=== PATIENT | male | born 1935 | race Caucasian/White ===

== ENCOUNTER 2021-05-04 23:15 | Inpatient (IN) | payer MEDICARE ==
[2021-05-05] LABS: #Eosinphils 0.1 thou/uL (0.0-0.7); #Lymphocytes 0.6 thou/uL (1.20-3.40); #Monocytes 0.8 thou/uL (0.11-0.59); #Neutrophils 13.3 thou/uL (1.40-6.50); %Basophils 0.1 % (0.0-1.0); %Eosinophils 0.8 % (0.0-10.0); %Lymphocytes 3.7 % (21.0-51.0); %Monocytes 5.1 % (0.0-10.0); %Neutrophils 90.2 % (42.0-75.0); Hemoglobin 9.8 g/dL (14.0-18.0); Mean Corpuscular HGB CONC 32.5 g/dL (32.0-36.0); Mean Corpuscular Hemoglobin 29.6 pg (27.0-31.0); Mean Corpuscular Volume 91.1 fL (78.0-98.0); Mean Platelet Volume 7.2 fL (7.4-10.4); Platelet Count 194 thou/uL (130-400); RBC Distribution Width 14.5 % (11.5-14.5); White Blood Cell (WBC) Count 14.7 thou/uL (4.8-10.8)
[2021-05-05 00:19] LABS: ALT (SGPT) 13 U/L (8-55); AST (SGOT) 22 U/L (5-34); Albumin 3.7 g/dL (3.4-4.8); Alkaline Phosphatase 101 U/L (40-110); Anion Gap 14 mmol/L (10-20); BUN (Urea Nitrogen) 52 mg/dL (8.4-25.7); Bilirubin, Total 0.5 mg/dL (0.2-1.2); Calc. Creatinine Clearance 0 mL/min (70-130); Calcium 8.1 mg/dL (7.8-10.44); Carbon Dioxide 24 mmol/L (23-31); Chloride 102 mmol/L (98-107); Globulin 2.4 g/dL (2.4-3.5); Glucose 111 mg/dL (83-110); Potassium 3.8 mmol/L (3.5-5.1); Protein, Total 6.1 g/dL (5.8-8.1); Sodium 136 mmol/L (136-145)
[2021-05-05] MEDS ORDERED: Cefepime 2 GM VIAL ONE (02:13)
[2021-05-05] MEDS ORDERED: Vancomycin 1 GM/200 ML BAG ONE (02:13)
[2021-05-05] MEDS ORDERED: Sodium Chloride 0.9% 1,000 ML IV SCH (05:15)
[2021-05-05 06:24] LABS: SARS-CoV-2 NAA Rapid Test Not Detected (NotDetected)
[2021-05-05] MEDS ORDERED: Senokot S 8.6-50 MG TAB PO PRN (08:26)
[2021-05-05] MEDS ORDERED: Calcium Carbonate 500 MG ChewTAB PO PRN (08:26)
[2021-05-05] MEDS ORDERED: Acetaminophen 325 MG TAB PO PRN (08:26)
[2021-05-05] MEDS ORDERED: Vancomycin 1 GM in Premix Bag 1 BAG IVPB SCH ×2 (08:30→11:45)
[2021-05-05] MEDS ORDERED: Cefepime 1 GM in Sodium Chloride 0.9% 100 ML IVPB SCH (08:30)
[2021-05-05] MEDS ORDERED: Heparin 10,000 UNITS/ 10 ML VIAL ONE (09:13)
[2021-05-05 10:05] LABS: Anion Gap 15 mmol/L (10-20); BUN (Urea Nitrogen) 51 mg/dL (8.4-25.7); Calc. Creatinine Clearance 0 mL/min (70-130); Calcium 8.2 mg/dL (7.8-10.44); Carbon Dioxide 24 mmol/L (23-31); Chloride 101 mmol/L (98-107); Glucose 102 mg/dL (83-110); Potassium 3.9 mmol/L (3.5-5.1); Sodium 136 mmol/L (136-145)
[2021-05-05 10:06] LABS: #Eosinphils 0.1 thou/uL (0.0-0.7); #Lymphocytes 1.1 thou/uL (1.20-3.40); #Monocytes 0.9 thou/uL (0.11-0.59); #Neutrophils 16.4 thou/uL (1.40-6.50); %Basophils 0.2 % (0.0-1.0); %Eosinophils 0.5 % (0.0-10.0); %Lymphocytes 6.1 % (21.0-51.0); %Neutrophils 88.2 % (42.0-75.0); Hemoglobin 9.9 g/dL (14.0-18.0); Mean Corpuscular HGB CONC 31.8 g/dL (32.0-36.0); Mean Corpuscular Hemoglobin 29.3 pg (27.0-31.0); Mean Corpuscular Volume 92.1 fL (78.0-98.0); Mean Platelet Volume 7.5 fL (7.4-10.4); Platelet Count 218 thou/uL (130-400); RBC Distribution Width 14.7 % (11.5-14.5); Red Blood Cell (RBC) Count 3.39 mill/uL (4.70-6.10); White Blood Cell (WBC) Count 18.6 thou/uL (4.8-10.8)
[2021-05-05 11:30] VITALS: BMI 25.6
[2021-05-05] MEDS ORDERED: HOLD VANCOMYCIN FOR LEVEL >20 FS SCH (11:45)
[2021-05-05] MEDS ORDERED: Vancomycin HCl 750 MG in Sodium Chloride 0.9% 250 ML 250 ML IVPB SCH (11:45)
[2021-05-05] MEDS ORDERED: Vancomycin HCl 500 MG in Sodium Chloride 0.9% 100 ML IVPB SCH (11:45)
[2021-05-05] MEDS ORDERED: Vancomycin HCl 250 MG in Sodium Chloride 0.9% 100 ML IVPB SCH (11:45)
[2021-05-05] MEDS: Saccharomyces boulardii 250 MG CAP PO SCH (11:57)
[2021-05-05 12:23] LABS: Vancomycin, Random 14.6 ug/mL (See Comment)
[2021-05-05] MEDS ORDERED: Labetalol HCl 100 MG/20 ML VIAL SLOW IVP PRN (14:37)
[2021-05-06] MEDS: Cefepime 0.5 GM in Sodium Chloride 0.9% 100 ML IVPB SCH (02:29)
[2021-05-06 07:02] LABS: #Eosinphils 0.1 thou/uL (0.0-0.7); #Lymphocytes 1.3 thou/uL (1.20-3.40); #Monocytes 0.9 thou/uL (0.11-0.59); #Neutrophils 6.8 thou/uL (1.40-6.50); %Basophils 0.1 % (0.0-1.0); %Eosinophils 0.9 % (0.0-10.0); %Lymphocytes 14.6 % (21.0-51.0); %Monocytes 10.3 % (0.0-10.0); %Neutrophils 74.2 % (42.0-75.0); Mean Corpuscular HGB CONC 32.4 g/dL (32.0-36.0); Mean Corpuscular Hemoglobin 29.7 pg (27.0-31.0); Mean Corpuscular Volume 91.8 fL (78.0-98.0); Mean Platelet Volume 8.1 fL (7.4-10.4); Platelet Count 186 thou/uL (130-400); RBC Distribution Width 14.7 % (11.5-14.5); Red Blood Cell (RBC) Count 3.02 mill/uL (4.70-6.10); White Blood Cell (WBC) Count 9.1 thou/uL (4.8-10.8)
[2021-05-06 07:15] LABS: Anion Gap 10 mmol/L (10-20); BUN (Urea Nitrogen) 26 mg/dL (8.4-25.7); Calc. Creatinine Clearance 14 mL/min (70-130); Calcium 8.4 mg/dL (7.8-10.44); Carbon Dioxide 30 mmol/L (23-31); Chloride 103 mmol/L (98-107); Glucose 95 mg/dL (83-110); Potassium 3.6 mmol/L (3.5-5.1); Sodium 139 mmol/L (136-145)
[2021-05-06] MEDS: Saccharomyces boulardii 250 MG CAP PO SCH (18:40)
[2021-05-06] MEDS ORDERED: SODIUM CHLORIDE 0.9% FS PRN (19:33)
[2021-05-06] MEDS ORDERED: HEPARIN FS PRN ×2 (19:33→19:36)
[2021-05-06] MEDS ORDERED: GENTAMICIN FS PRN ×2 (19:33→19:36)
[2021-05-06] MEDS ORDERED: [UNRECOGNIZED DRUG - OTHER] FS PRN (19:36)
[2021-05-06] MEDS ORDERED: traMADol HCl 50 MG TAB PO SCH (21:00)
[2021-05-06] MEDS ORDERED: Atorvastatin Calcium 40 MG TAB PO SCH (21:00)
[2021-05-06] MEDS: Lisinopril 20 MG TAB PO SCH (22:06)
[2021-05-06] MEDS: traMADol HCl 50 MG TAB PO SCH (22:08)
[2021-05-06] MEDS: Atorvastatin Calcium 40 MG TAB PO SCH (22:09)
[2021-05-07] MEDS: Cefepime 0.5 GM in Sodium Chloride 0.9% 100 ML IVPB SCH (02:09)
[2021-05-07] MEDS ORDERED: Non-Formulary Item 1 EACH (Folic Acid [Folic Acid] 0.8 MG Tablet) PO SCH (09:00)
[2021-05-07] MEDS ORDERED: Non-Formulary Item 1 EACH (Loratadine [Claritin] 5 MG Tab.Rapdis) PO SCH (09:00)
[2021-05-07] MEDS ORDERED: Cholecalciferol 1,000 UNITS (25 MCG) TAB PO SCH (09:00)
[2021-05-07] MEDS ORDERED: Heparin 10,000 UNITS/ 10 ML VIAL ONE (09:17)
[2021-05-07] MEDS: Amlodipine 10 MG TAB PO SCH (10:20)
[2021-05-07] MEDS: Cholecalciferol 1,000 UNITS (25 MCG) TAB PO SCH (10:22)
[2021-05-07] MEDS: Folic Acid 1 MG TAB PO SCH (10:26)
[2021-05-07] MEDS: Loratadine 10 MG TAB PO SCH (10:27)
[2021-05-07] MEDS: Lisinopril 20 MG TAB PO SCH ×2 (10:27→19:56)
[2021-05-07] MEDS: traMADol HCl 50 MG TAB PO SCH ×2 (10:39→19:56)
[2021-05-07] MEDS: Saccharomyces boulardii 250 MG CAP PO SCH (10:39)
[2021-05-07] MEDS ORDERED: SODIUM CHLORIDE 0.9% FS PRN (14:35)
[2021-05-07] MEDS ORDERED: GENTAMICIN FS PRN (14:35)
[2021-05-07] MEDS: Carvedilol 25 MG TAB PO SCH ×2 (15:15→19:55)
[2021-05-07] MEDS: Atorvastatin Calcium 40 MG TAB PO SCH (19:55)
[2021-05-08] MEDS: Cefepime 0.5 GM in Sodium Chloride 0.9% 100 ML IVPB SCH (04:33)
[2021-05-08] MEDS: Amlodipine 10 MG TAB PO SCH (09:18)
[2021-05-08] MEDS: Folic Acid 1 MG TAB PO SCH (09:19)
[2021-05-08] MEDS: Cholecalciferol 1,000 UNITS (25 MCG) TAB PO SCH (09:19)
[2021-05-08] MEDS: Lisinopril 20 MG TAB PO SCH ×2 (09:19→19:23)
[2021-05-08] MEDS: traMADol HCl 50 MG TAB PO SCH ×2 (09:20→19:25)
[2021-05-08] MEDS: Saccharomyces boulardii 250 MG CAP PO SCH (09:20)
[2021-05-08] MEDS: Loratadine 10 MG TAB PO SCH (09:20)
[2021-05-08] MEDS: Atorvastatin Calcium 40 MG TAB PO SCH (19:22)
[2021-05-09] MEDS: Cefepime 0.5 GM in Sodium Chloride 0.9% 100 ML IVPB SCH (03:50)
[2021-05-09] MEDS ORDERED: Heparin 10,000 UNITS/ 10 ML VIAL ONE (09:27)
[2021-05-09] MEDS: Folic Acid 1 MG TAB PO SCH (10:31)
[2021-05-09] MEDS: Cholecalciferol 1,000 UNITS (25 MCG) TAB PO SCH (10:31)
[2021-05-09] MEDS: traMADol HCl 50 MG TAB PO SCH ×3 (10:31→20:10)
[2021-05-09] MEDS: Lisinopril 20 MG TAB PO SCH ×2 (10:31→20:04)
[2021-05-09] MEDS: Saccharomyces boulardii 250 MG CAP PO SCH (10:31)
[2021-05-09] MEDS: Loratadine 10 MG TAB PO SCH (10:31)
[2021-05-09] MEDS: Carvedilol 25 MG TAB PO SCH ×2 (10:31→20:05)
[2021-05-09] MEDS: Atorvastatin Calcium 40 MG TAB PO SCH (20:04)
[2021-05-09] MEDS ORDERED: Amlodipine 10 MG TAB PO SCH (21:00)
[2021-05-10] MEDS: Cefepime 0.5 GM in Sodium Chloride 0.9% 100 ML IVPB SCH (02:18)
[2021-05-10] MEDS ORDERED: Amlodipine 10 MG TAB PO SCH (09:00)
[2021-05-10] MEDS: Folic Acid 1 MG TAB PO SCH (09:28)
[2021-05-10] MEDS: Cholecalciferol 1,000 UNITS (25 MCG) TAB PO SCH (09:28)
[2021-05-10] MEDS: Loratadine 10 MG TAB PO SCH (09:28)
[2021-05-10] MEDS: Lisinopril 20 MG TAB PO SCH (09:28)
[2021-05-10] MEDS: Saccharomyces boulardii 250 MG CAP PO SCH (09:29)
[2021-05-10] MEDS: traMADol HCl 50 MG TAB PO SCH (09:45)
[2021-05-10 11:44] VITALS: BP 148/65; TEMP 97.9
== END 2021-05-10 11:50 | disposition home or self-care (01) | DRG 314 ==
LOC: ERS 23:15 → ERHOLD 05-05 01:06 → SURG B 05-05 03:27 → SURG A 05-05 05:41 → SURG B 05-05 09:19
PROVIDERS: ADMIT Internal Medicine; ATTEND Family Medicine
DX: T80.211A Bloodstream infection due to central venous catheter, initial encounter (principal); N18.6 End stage renal disease; R65.20 Severe sepsis without septic shock; A41.59 Other Gram-negative sepsis; I12.0 Hypertensive chronic kidney disease with stage 5 chronic kidney disease or end stage renal disease; M10.9 Gout, unspecified; Z96.653 Presence of artificial knee joint, bilateral; Z20.822 Contact with and (suspected) exposure to COVID-19; I25.10 Atherosclerotic heart disease of native coronary artery without angina pectoris; D63.1 Anemia in chronic kidney disease; D53.9 Nutritional anemia, unspecified; E83.42 Hypomagnesemia; Y83.8 Other surgical procedures as the cause of abnormal reaction of the patient, or of later complication, without mention of misadventure at the time of the procedure; Z79.82 Long term (current) use of aspirin; Z95.5 Presence of coronary angioplasty implant and graft; Z79.899 Other long term (current) drug therapy; Z99.2 Dependence on renal dialysis; Z85.46 Personal history of malignant neoplasm of prostate
CPT/HCPCS: 0240U; 36415; 71045; 80048; 80053; 80202; 83605; 83690; 85025; 86140; 87040; 87077; 87149; 87186; 90935; 96365; 96367; G0257; J0692; J1580; J1644; J3370; J3490

== ENCOUNTER 2021-10-12 13:08 | Outpatient (CLI) | payer MEDICARE ==
[2021-10-13 09:06] LABS: SARS-CoV-2 PCR by NAA Not Detected (NotDetected)
== END 2021-10-12 13:09 | disposition home or self-care (01) ==
LOC: LABBT 13:08
PROVIDERS: ATTEND Specialist
DX: Z01.818 Encounter for other preprocedural examination (principal); K42.9 Umbilical hernia without obstruction or gangrene; K40.90 Unilateral inguinal hernia, without obstruction or gangrene, not specified as recurrent; Z20.822 Contact with and (suspected) exposure to COVID-19
CPT/HCPCS: 71046; 93005; U0003; U0005; 93010

== ENCOUNTER 2021-10-15 07:48 | Day surgery (SDC) | payer MEDICARE ==
[2021-10-12 11:28] VITALS: BMI 20.7
[2021-10-15] MEDS ORDERED: Acetaminophen 500 MG TAB ONE (07:58)
[2021-10-15] MEDS ORDERED: Ketorolac Tromethamine 30 MG/ML VIAL ONE (07:58)
[2021-10-15 08:49] LABS: #Basophils 0.1 thou/uL (0.0-0.2); #Eosinphils 0.3 thou/uL (0.0-0.7); #Lymphocytes 1.4 thou/uL (1.20-3.40); #Monocytes 0.6 thou/uL (0.11-0.59); #Neutrophils 3.7 thou/uL (1.40-6.50); %Basophils 1.1 % (0.0-1.0); %Eosinophils 4.2 % (0.0-10.0); %Lymphocytes 23.5 % (21.0-51.0); %Monocytes 9.2 % (0.0-10.0); Hemoglobin 12.3 g/dL (14.0-18.0); Mean Corpuscular HGB CONC 32.4 g/dL (32.0-36.0); Mean Corpuscular Hemoglobin 31.6 pg (27.0-31.0); Mean Corpuscular Volume 97.7 fL (78.0-98.0); Mean Platelet Volume 6.1 fL (7.4-10.4); Platelet Count 281 thou/uL (130-400); Red Blood Cell (RBC) Count 3.89 mill/uL (4.70-6.10)
[2021-10-15 09:06] LABS: Anion Gap 17 mmol/L (10-20); BUN (Urea Nitrogen) 45 mg/dL (8.4-25.7); Calc. Creatinine Clearance 8 mL/min (70-130); Calcium 9.6 mg/dL (7.8-10.44); Carbon Dioxide 24 mmol/L (23-31); Chloride 103 mmol/L (98-107); Glucose 100 mg/dL (83-110); Potassium 4.5 mmol/L (3.5-5.1); Sodium 139 mmol/L (136-145)
[2021-10-15] MEDS ORDERED: Bupivacaine 0.25% HCL 30 ML VIAL ONE (09:22)
[2021-10-15] MEDS ORDERED: Xylocaine 1% w/ Epi 1:100K 10 ML VIAL ONE (09:22)
[2021-10-15] MEDS ORDERED: Dexmedetomidine 200 MCG/2 ML VIAL ONE (09:27)
[2021-10-15] MEDS ORDERED: Fentanyl 100 MCG/2 ML VIAL ONE (09:27)
[2021-10-15] MEDS ORDERED: ceFAZolin 2 GM/Dextrose 50 ML IVPB ONE (09:35)
[2021-10-15] MEDS ORDERED: SUGAMMADEX SODIUM 200 MG/2 ML VIAL ONE (09:43)
[2021-10-15] MEDS ORDERED: ePHEDrine 50 MG/ML VIAL ONE (09:51)
[2021-10-15] MEDS ORDERED: Ondansetron PF 4 MG/2 ML Vial ONE (09:51)
[2021-10-15] MEDS ORDERED: PROPOFOL 200 MG/20 ML VIAL ONE (09:51)
[2021-10-15] MEDS ORDERED: Lidocaine 1% PF 5 ML VIAL ONE (09:51)
[2021-10-15] MEDS ORDERED: Dexamethasone 20 MG/5 ML VIAL ONE (09:51)
[2021-10-15] MEDS ORDERED: Rocuronium Bromide 10 MG/ML (10ML VIAL) ONE (09:51)
== END 2021-10-15 13:35 | disposition home or self-care (01) ==
LOC: SDC 07:48
PROVIDERS: ATTEND Specialist
PROC: 0YU54JZ Supplement Right Inguinal Region with Synthetic Substitute, Percutaneous Endoscopic Approach (ICD-10-PCS; principal; 2021-10-15)
DX: K40.90 Unilateral inguinal hernia, without obstruction or gangrene, not specified as recurrent (principal); K42.0 Umbilical hernia with obstruction, without gangrene; K66.0 Peritoneal adhesions (postprocedural) (postinfection); I11.9 Hypertensive heart disease without heart failure; M19.90 Unspecified osteoarthritis, unspecified site; Z85.46 Personal history of malignant neoplasm of prostate; Z79.02 Long term (current) use of antithrombotics/antiplatelets; Z79.82 Long term (current) use of aspirin; Z79.891 Long term (current) use of opiate analgesic; Z79.899 Other long term (current) drug therapy; Z95.5 Presence of coronary angioplasty implant and graft; Z99.2 Dependence on renal dialysis
CPT/HCPCS: 80048; 85025; C1781; J0690; J1100; J1885; J2405; J2704; J3010; J3490; S0020

== ENCOUNTER 2022-06-16 17:55 | Inpatient (IN) | payer MEDICARE ==
[2022-06-16] MEDS ORDERED: Labetalol HCl 100 MG/20 ML VIAL ONE (18:19)
[2022-06-16 18:34] LABS: #Eosinphils 0.2 thou/uL (0.0-0.7); #Lymphocytes 1.4 thou/uL (1.20-3.40); #Monocytes 0.8 thou/uL (0.11-0.59); #Neutrophils 2.9 thou/uL (1.40-6.50); %Basophils 0.7 % (0.0-1.0); %Eosinophils 4.3 % (0.0-10.0); %Lymphocytes 25.5 % (21.0-51.0); %Monocytes 14.8 % (0.0-10.0); %Neutrophils 54.8 % (42.0-75.0); Hemoglobin 12.2 g/dL (14.0-18.0); Mean Corpuscular HGB CONC 32.5 g/dL (32.0-36.0); Mean Corpuscular Hemoglobin 30.4 pg (27.0-31.0); Mean Corpuscular Volume 93.3 fL (78.0-98.0); Mean Platelet Volume 6.7 fL (7.4-10.4); Platelet Count 270 thou/uL (130-400); RBC Distribution Width 14.5 % (11.5-14.5); Red Blood Cell (RBC) Count 4.01 mill/uL (4.70-6.10); White Blood Cell (WBC) Count 5.4 thou/uL (4.8-10.8)
[2022-06-16 18:55] LABS: ALT (SGPT) 18 U/L (8-55); AST (SGOT) 24 U/L (5-34); Albumin 4.2 g/dL (3.4-4.8); Alkaline Phosphatase 90 U/L (40-110); Anion Gap 15 mmol/L (10-20); BUN (Urea Nitrogen) 27 mg/dL (8.4-25.7); Bilirubin, Total 0.7 mg/dL (0.2-1.2); Calc. Creatinine Clearance 0 mL/min (70-130); Calcium 9.5 mg/dL (7.8-10.44); Carbon Dioxide 28 mmol/L (23-31); Chloride 102 mmol/L (98-107); Estimated GFR 14; Globulin 2.4 g/dL (2.4-3.5); Glucose 89 mg/dL (83-110); Potassium 4.2 mmol/L (3.5-5.1); Protein, Total 6.6 g/dL (5.8-8.1); Sodium 141 mmol/L (136-145)
[2022-06-16 19:17] LABS: CKMB 4.4 ng/mL (0-6.6)
[2022-06-16] MEDS ORDERED: niCARdipine 25 MG/10 ML VIAL ONE (20:06)
[2022-06-16 21:35] LABS: SARS-CoV-2 NAA Rapid Test Not Detected (NotDetected)
[2022-06-16 21:40] LABS: Troponin I 0.057 ng/mL (< 0.028)
[2022-06-16] MEDS ORDERED: Ondansetron PF 4 MG/2 ML Vial IVP PRN (21:53)
[2022-06-16] MEDS ORDERED: Acetaminophen 325 MG TAB PO PRN (21:53)
[2022-06-16] MEDS ORDERED: hydrALAZINE 25 MG TAB PO SCH (22:00)
[2022-06-16 22:49] VITALS: BMI 18.9
[2022-06-17 01:17] LABS: Troponin I 0.052 ng/mL (< 0.028)
[2022-06-17] MEDS: niCARdipine 25 MG in Sodium Chloride 0.9% 250 ML 250 ML IVPB SCH ×2 (02:43→06:40)
[2022-06-17 03:46] LABS: #Eosinphils 0.2 thou/uL (0.0-0.7); #Lymphocytes 1.9 thou/uL (1.20-3.40); #Monocytes 0.8 thou/uL (0.11-0.59); #Neutrophils 4.8 thou/uL (1.40-6.50); %Basophils 0.1 % (0.0-1.0); %Lymphocytes 24.8 % (21.0-51.0); %Monocytes 10.4 % (0.0-10.0); %Neutrophils 61.6 % (42.0-75.0); Hemoglobin 12.5 g/dL (14.0-18.0); Mean Corpuscular HGB CONC 32.9 g/dL (32.0-36.0); Mean Corpuscular Hemoglobin 30.8 pg (27.0-31.0); Mean Corpuscular Volume 93.6 fL (78.0-98.0); Mean Platelet Volume 7.4 fL (7.4-10.4); Platelet Count 240 thou/uL (130-400); RBC Distribution Width 14.5 % (11.5-14.5); Red Blood Cell (RBC) Count 4.07 mill/uL (4.70-6.10); White Blood Cell (WBC) Count 7.8 thou/uL (4.8-10.8)
[2022-06-17 04:08] LABS: Anion Gap 17 mmol/L (10-20); BUN (Urea Nitrogen) 31 mg/dL (8.4-25.7); Calc. Creatinine Clearance 10 mL/min (70-130); Calcium 9.3 mg/dL (7.8-10.44); Carbon Dioxide 20 mmol/L (23-31); Chloride 105 mmol/L (98-107); Estimated GFR 13; Glucose 108 mg/dL (83-110); Potassium 4.2 mmol/L (3.5-5.1); Sodium 138 mmol/L (136-145)
[2022-06-17] MEDS ORDERED: Carvedilol 25 MG TAB PO SCH (08:00)
[2022-06-17] MEDS ORDERED: Famotidine 20 MG TAB PO SCH ×2 (09:00)
[2022-06-17] MEDS: Losartan 25 MG TAB PO SCH (09:01)
[2022-06-17] MEDS: Amlodipine 10 MG TAB PO SCH (09:01)
[2022-06-17] MEDS: hydrALAZINE 25 MG TAB PO SCH ×3 (09:02→20:45)
[2022-06-17] MEDS: Heparin 5,000 UNITS/ML VIAL SC SCH ×2 (09:02→20:46)
[2022-06-17 09:24] LABS: HBSAg Index 0.27 S/CO (0-0.99); Hep B Core Total Ab Non-Reactive (NonReactive); Hep B Core Total Index 0.09 S/CO (0-0.79); Hep B Surf Ag Non-Reactive S/CO (NonReactive); Hep C IgG Ab Non-Reactive (NonReactive); Hep C Index 0.08 S/CO (0-0.79)
[2022-06-17 09:26] LABS: HBSAB Concentration 12.33 mIU/mL; Hep B Surf AB Reactive (NonReactive)
[2022-06-17] MEDS: Carvedilol 25 MG TAB PO SCH (16:27)
[2022-06-17] MEDS ORDERED: Atorvastatin Calcium 40 MG TAB PO SCH (21:00)
[2022-06-18] MEDS: Labetalol HCl 100 MG/20 ML VIAL SLOW IVP PRN ×2 (03:21→07:00)
[2022-06-18 05:19] LABS: Phosphorus 2.8 mg/dL (2.3-4.7)
[2022-06-18 05:23] LABS: #Eosinphils 0.1 thou/uL (0.0-0.7); #Lymphocytes 1.5 thou/uL (1.20-3.40); #Monocytes 0.6 thou/uL (0.11-0.59); #Neutrophils 3.6 thou/uL (1.40-6.50); %Basophils 0.3 % (0.0-1.0); %Eosinophils 2.1 % (0.0-10.0); %Lymphocytes 25.3 % (21.0-51.0); %Monocytes 10.3 % (0.0-10.0); Hemoglobin 12.3 g/dL (14.0-18.0); Mean Corpuscular HGB CONC 33.4 g/dL (32.0-36.0); Mean Corpuscular Hemoglobin 31.3 pg (27.0-31.0); Mean Corpuscular Volume 93.8 fL (78.0-98.0); Mean Platelet Volume 6.6 fL (7.4-10.4); Platelet Count 258 thou/uL (130-400); RBC Distribution Width 14.6 % (11.5-14.5); Red Blood Cell (RBC) Count 3.92 mill/uL (4.70-6.10); White Blood Cell (WBC) Count 5.8 thou/uL (4.8-10.8)
[2022-06-18 05:27] LABS: ALT (SGPT) 17 U/L (8-55); AST (SGOT) 23 U/L (5-34); Albumin 3.4 g/dL (3.4-4.8); Alkaline Phosphatase 70 U/L (40-110); Anion Gap 12 mmol/L (10-20); BUN (Urea Nitrogen) 29 mg/dL (8.4-25.7); Bilirubin, Total 0.6 mg/dL (0.2-1.2); Calc. Creatinine Clearance 12 mL/min (70-130); Calcium 9.1 mg/dL (7.8-10.44); Carbon Dioxide 27 mmol/L (23-31); Chloride 105 mmol/L (98-107); Estimated GFR 14; Globulin 1.9 g/dL (2.4-3.5); Glucose 100 mg/dL (83-110); Magnesium 1.8 mg/dL (1.6-2.6); Potassium 3.8 mmol/L (3.5-5.1); Protein, Total 5.3 g/dL (5.8-8.1); Sodium 140 mmol/L (136-145)
[2022-06-18] MEDS: Losartan 25 MG TAB PO SCH (08:18)
[2022-06-18] MEDS: Amlodipine 10 MG TAB PO SCH (08:18)
[2022-06-18] MEDS: Carvedilol 25 MG TAB PO SCH (08:18)
[2022-06-18] MEDS: hydrALAZINE 25 MG TAB PO SCH ×2 (08:18→15:03)
[2022-06-18] MEDS: Heparin 5,000 UNITS/ML VIAL SC SCH (08:19)
[2022-06-18 08:48] VITALS: TEMP 97.3
[2022-06-18 15:04] VITALS: BP 199/86
== END 2022-06-18 16:14 | disposition home or self-care (01) | DRG 304 ==
LOC: ERS 17:55 → CCU 20:57 → MSONC 06-17 15:36
PROVIDERS: ADMIT Internal Medicine; ATTEND Internal Medicine
DX: I16.0 Hypertensive urgency (principal); N18.6 End stage renal disease; I24.8 Other forms of acute ischemic heart disease; I16.1 Hypertensive emergency; I12.0 Hypertensive chronic kidney disease with stage 5 chronic kidney disease or end stage renal disease; Z20.822 Contact with and (suspected) exposure to COVID-19; I25.10 Atherosclerotic heart disease of native coronary artery without angina pectoris; Z99.2 Dependence on renal dialysis; Z96.653 Presence of artificial knee joint, bilateral; D63.1 Anemia in chronic kidney disease; M10.9 Gout, unspecified; Z85.46 Personal history of malignant neoplasm of prostate; Z90.79 Acquired absence of other genital organ(s); Z79.82 Long term (current) use of aspirin; Z79.899 Other long term (current) drug therapy; Z79.02 Long term (current) use of antithrombotics/antiplatelets; Z95.5 Presence of coronary angioplasty implant and graft; Z82.49 Family history of ischemic heart disease and other diseases of the circulatory system
CPT/HCPCS: 36415; 76770; 80048; 80053; 82553; 83735; 84100; 84244; 84484; 85025; 86704; 87340; 93005; 96365; 96366; 96375; 96376; J1644; J7050; U0002

== ENCOUNTER 2023-04-19 10:39 | Inpatient (IN) | payer MEDICARE ==
[~2023-04-19 10:39] MED LIST: Iopamidol-370 76% 500 ML MDV (1 ML CHARGE) ONE
[2023-04-19 11:03] LABS: #Eosinphils 0.2 thou/uL (0.0-0.7); #Monocytes 0.6 thou/uL (0.11-0.59); #Neutrophils 2.5 thou/uL (1.40-6.50); %Basophils 0.7 % (0.0-1.0); %Eosinophils 3.3 % (0.0-10.0); %Lymphocytes 28.5 % (21.0-51.0); %Monocytes 12.1 % (0.0-10.0); Hemoglobin 11.5 g/dL (14.0-18.0); Mean Corpuscular HGB CONC 32.7 g/dL (32.0-36.0); Mean Corpuscular Hemoglobin 31.7 pg (27.0-31.0); Mean Platelet Volume 9.2 fL (7.4-10.4); Platelet Count 187 10x3/uL (130-400); RBC Distribution Width 15.9 % (11.5-14.5); Red Blood Cell (RBC) Count 3.63 mill/uL (4.70-6.10); White Blood Cell (WBC) Count 4.6 10x3/uL (4.8-10.8)
[2023-04-19 11:17] LABS: INR-International Normal Ratio 1.1; PTT 32.9 sec (22.9-36.1); Prothrombin Time 14.2 sec (12.0-14.7)
[2023-04-19 11:33] LABS: Potassium 4.4 mmol/L (3.5-5.1); Sodium 140 mmol/L (136-145)
[2023-04-19 11:34] LABS: ALT (SGPT) 13 U/L (8-55); AST (SGOT) 19 U/L (5-34); Albumin 4.4 g/dL (3.4-4.8); Alkaline Phosphatase 71 U/L (40-110); Anion Gap 15 mmol/L (10-20); BUN (Urea Nitrogen) 38 mg/dL (8.4-25.7); Bilirubin, Total 0.7 mg/dL (0.2-1.2); Calc. Creatinine Clearance 0 mL/min (70-130); Calcium 10.1 mg/dL (7.6-10.4); Carbon Dioxide 27 mmol/L (23-31); Chloride 102 mmol/L (98-107); Estimated GFR 10; Globulin 2.2 g/dL (2.4-3.5); Glucose 126 mg/dL (83-110); Protein, Total 6.6 g/dL (5.8-8.1)
[2023-04-19 12:03] LABS: CKMB 2.7 ng/mL (0-6.6)
[2023-04-19] MEDS ORDERED: Ondansetron PF 4 MG/2 ML Vial IVP PRN ×2 (13:15→17:14)
[2023-04-19] MEDS ORDERED: Ondansetron ODT 4 MG TAB SL PRN (13:15)
[2023-04-19] MEDS ORDERED: Acetaminophen 325 MG TAB PO PRN ×2 (13:15→17:14)
[2023-04-19] MEDS ORDERED: Aspirin Chewable 81 MG TAB ONE (13:19)
[2023-04-19 16:07] LABS: Troponin I 0.082 ng/mL (< 0.028)
[2023-04-19] MEDS ORDERED: Ondansetron ODT 4 MG TAB PO PRN (17:14)
[2023-04-19] MEDS ORDERED: Acetaminophen 650 MG Suppository PR PRN (17:14)
[2023-04-19 18:31] VITALS: BMI 20.7
[2023-04-19 19:15] LABS: Troponin I 0.065 ng/mL (< 0.028)
[2023-04-19] MEDS: traMADol HCl 50 MG TAB PO SCH (21:26)
[2023-04-19] MEDS: hydrALAZINE 25 MG TAB PO SCH (21:26)
[2023-04-19] MEDS: Atorvastatin Calcium 40 MG TAB PO SCH (21:26)
[2023-04-19] MEDS: Carvedilol 25 MG TAB PO SCH (21:26)
[2023-04-20 05:22] LABS: #Eosinphils 0.2 thou/uL (0.0-0.7); #Monocytes 0.7 thou/uL (0.11-0.59); #Neutrophils 2.5 thou/uL (1.40-6.50); %Basophils 0.4 % (0.0-1.0); %Eosinophils 3.9 % (0.0-10.0); %Lymphocytes 29.3 % (21.0-51.0); %Monocytes 14.3 % (0.0-10.0); %Neutrophils 51.9 % (42.0-75.0); Mean Corpuscular HGB CONC 32.7 g/dL (32.0-36.0); Mean Corpuscular Hemoglobin 31.4 pg (27.0-31.0); Mean Corpuscular Volume 96.2 fl (78.0-98.0); Mean Platelet Volume 9.8 fL (7.4-10.4); Platelet Count 176 10x3/uL (130-400); RBC Distribution Width 15.8 % (11.5-14.5); Red Blood Cell (RBC) Count 3.18 mill/uL (4.70-6.10); White Blood Cell (WBC) Count 4.8 10x3/uL (4.8-10.8)
[2023-04-20 05:29] LABS: Hemoglobin A1c 5.2 % (4.0-6.0)
[2023-04-20 05:48] LABS: Anion Gap 15 mmol/L (10-20); BUN (Urea Nitrogen) 48 mg/dL (8.4-25.7); Calc. Creatinine Clearance 7 mL/min (70-130); Calcium 9.1 mg/dL (7.8-10.44); Carbon Dioxide 25 mmol/L (23-31); Cardiac Risk 2.7 (Less than 4.5); Chloride 100 mmol/L (98-107); Cholesterol 109 mg/dl (< 200 Desired); Estimated GFR 8; Glucose 87 mg/dL (83-110); HDL Cholesterol 40 mg/dL (>60 Neg Risk); LDL Cholesterol, Calculated 52 mg/dL; Potassium 4.2 mmol/L (3.5-5.1); Sodium 136 mmol/L (136-145); Triglycerides 87 mg/dL (Less than 150)
[2023-04-20] MEDS: Amlodipine 10 MG TAB PO SCH (07:45)
[2023-04-20] MEDS: Aspirin 81 mg Enteric Coated Tablet PO SCH (13:34)
[2023-04-20] MEDS: Carvedilol 25 MG TAB PO SCH ×2 (13:36→20:39)
[2023-04-20] MEDS: Cholecalciferol 1,000 UNITS (25 MCG) TAB PO SCH (13:36)
[2023-04-20] MEDS: Loratadine 10 MG TAB PO SCH (13:37)
[2023-04-20] MEDS: Clopidogrel Bisulfate 75 MG TAB PO SCH (13:37)
[2023-04-20] MEDS: Folic Acid 1 MG TAB PO SCH (13:37)
[2023-04-20] MEDS: Losartan 25 MG TAB PO SCH (13:38)
[2023-04-20] MEDS: traMADol HCl 50 MG TAB PO SCH ×2 (13:41→20:39)
[2023-04-20] MEDS: hydrALAZINE 25 MG TAB PO SCH ×2 (16:13→16:14)
[2023-04-20] MEDS: Atorvastatin Calcium 40 MG TAB PO SCH (20:40)
[2023-04-20] MEDS ORDERED: hydrALAZINE 10 MG TAB PO SCH (21:00)
[2023-04-20] MEDS ORDERED: Terazosin HCl 5 MG CAP PO SCH (21:00)
[2023-04-21 05:21] LABS: Hemoglobin 10.6 g/dL (14.0-18.0); Mean Corpuscular Hemoglobin 32.1 pg (27.0-31.0); Mean Corpuscular Volume 97.3 fl (78.0-98.0); RBC Distribution Width 15.6 % (11.5-14.5); White Blood Cell (WBC) Count 6.2 10x3/uL (4.8-10.8)
[2023-04-21 05:22] LABS: #Eosinphils 0.2 thou/uL (0.0-0.7); #Monocytes 0.9 thou/uL (0.11-0.59); #Neutrophils 3.2 thou/uL (1.40-6.50); %Basophils 0.3 % (0.0-1.0); %Eosinophils 2.7 % (0.0-10.0); %Monocytes 15.1 % (0.0-10.0); %Neutrophils 50.6 % (42.0-75.0); Mean Platelet Volume 9.9 fL (7.4-10.4); Platelet Count 195 10x3/uL (130-400)
[2023-04-21 05:57] LABS: Anion Gap 17 mmol/L (10-20); BUN (Urea Nitrogen) 30 mg/dL (8.4-25.7); Calc. Creatinine Clearance 10 mL/min (70-130); Calcium 9.1 mg/dL (7.8-10.44); Carbon Dioxide 26 mmol/L (23-31); Chloride 100 mmol/L (98-107); Estimated GFR 10; Glucose 97 mg/dL (83-110); Sodium 139 mmol/L (136-145)
[2023-04-21 07:48] VITALS: BP 185/71; TEMP 97.7
[2023-04-21] MEDS: Losartan 25 MG TAB PO SCH (08:47)
[2023-04-21] MEDS: traMADol HCl 50 MG TAB PO SCH (08:48)
[2023-04-21] MEDS: Cholecalciferol 1,000 UNITS (25 MCG) TAB PO SCH (08:49)
[2023-04-21] MEDS: Amlodipine 10 MG TAB PO SCH (08:49)
[2023-04-21] MEDS: Folic Acid 1 MG TAB PO SCH (08:49)
[2023-04-21] MEDS: Carvedilol 25 MG TAB PO SCH (08:49)
[2023-04-21] MEDS: Loratadine 10 MG TAB PO SCH (08:49)
[2023-04-21] MEDS: Clopidogrel Bisulfate 75 MG TAB PO SCH (08:50)
[2023-04-21] MEDS: Aspirin 81 mg Enteric Coated Tablet PO SCH (08:50)
== END 2023-04-21 11:28 | disposition home or self-care (01) | DRG 64 ==
LOC: ERS 10:39 → ERHOLD 13:12 → 2SE 17:25 → OBSVTOIN 19:29
PROVIDERS: ADMIT Internal Medicine; ATTEND Emergency Medicine
PROC: 5A1D70Z Performance of Urinary Filtration, Intermittent, Less than 6 Hours Per Day (ICD-10-PCS; principal; 2023-04-20)
DX: I63.81 Other cerebral infarction due to occlusion or stenosis of small artery (principal); N18.6 End stage renal disease; I12.0 Hypertensive chronic kidney disease with stage 5 chronic kidney disease or end stage renal disease; G81.91 Hemiplegia, unspecified affecting right dominant side; I25.10 Atherosclerotic heart disease of native coronary artery without angina pectoris; D63.1 Anemia in chronic kidney disease; C61 Malignant neoplasm of prostate; R29.703 NIHSS score 3; R77.8 Other specified abnormalities of plasma proteins; M10.9 Gout, unspecified; Z96.653 Presence of artificial knee joint, bilateral; Z79.82 Long term (current) use of aspirin; Z79.899 Other long term (current) drug therapy; Z98.890 Other specified postprocedural states; Z90.79 Acquired absence of other genital organ(s); Z95.5 Presence of coronary angioplasty implant and graft; Z99.2 Dependence on renal dialysis; Z82.49 Family history of ischemic heart disease and other diseases of the circulatory system
CPT/HCPCS: 0042T; 36415; 36416; 70450; 70496; 70498; 70551; 71045; 80048; 80053; 80061; 82553; 83036; 84443; 84484; 85025; 85610; 85730; 90935; 93005; 93306; 94760; G0257; G0378; Q9967